=== PATIENT | male | born 1975 | race African-American/Black ===

== ENCOUNTER 2020-02-19 22:13 | Emergency (ER) | payer MEDICAID, SELFPAY ==
[2020-02-19 22:30] VITALS: BP 158/92; PULSE 88; RESP 16; TEMP 36.6; O2SAT 98; BMI 30.7
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
[2020-02-19 22:56] VITALS: RESP 16
[2020-02-19 23:27] LABS: MANUAL DIFF FLAG NO
[2020-02-19 23:28] LABS: Basophils Absolute Auto 0.1 X10*3/uL (0.0-0.2); Basophils Percent Auto 1.1 % (0-2); Eosinophils Absolute Auto 0.2 X10*3/uL (0.0-0.4); Eosinophils Percent Auto 3.5 % (0-4); Hematocrit 40.8 % (42-52); Hemoglobin 13.6 g/dl (14.0-18.0); Imm Gran Abs Auto 0.04 X10*3/uL (0.00-0.03); Imm Gran Pct Auto 0.7 % (0.0-0.4); Lymphocytes Percent Auto 35.3 % (20-40); Mean Corpuscular HGB Conc 33.3 g/dl (31.0-36.0); Mean Corpuscular Hemoglobin 33.4 pg (27.0-33.0); Mean Corpuscular Volume 100.2 fL (80-98); Mean Platelet Volume 9.5 fL (9.4-12.4); Monocytes Absolute Auto 0.6 X10*3/uL (0.1-1.2); Monocytes Percent Auto 10.1 % (2-11); Neutrophils Absolute Auto 2.8 X10*3/uL (2.0-8.3); Neutrophils Percent Auto 49.3 % (45-73); Platelet Count 224 X10*3/uL (160-400); Red Blood Count 4.07 X10*6/uL (4.60-5.80); Red Cell Distribution Width 12.3 % (11.0-16.0); White Blood Count 5.7 X10*3/uL (4.8-10.8)
[2020-02-19 23:51] LABS: Ethanol 97 mg/dL
[2020-02-20] VITALS (8 sets, daily range): BP systolic 125–174; BP diastolic 78–93; PULSE 78–106; RESP 14–20; TEMP 36.6–36.8; O2SAT 94–99
[2020-02-20] MEDS: Acetaminophen 325 MG TABLET 650 MG PO ×2 (00:30→13:01)
[2020-02-20 00:47] LABS: Amphetamine Screen Urine Not Detected (Not Detect); Barbiturates, Urine Not Detected (Not Detect); Benzodiazepines Screen Urine Not Detected (Not Detect); Cannabinoid Screen Urine POSITIVE (Not Detect); Cocaine Screen Urine POSITIVE (Not Detect); Opiate Screen Urine Not Detected (Not Detect); Phencyclidine Screen Urine POSITIVE (Not Detect)
--- NOTE | 2020-02-20 05:26 | PC.NURSE ---
Called and faxed to N
--- NOTE | 2020-02-20 07:25 | PC.NURSE ---
pt eating breakfast. pt calm and cooperative. pt aware we are awaiting BHN
--- NOTE | 2020-02-20 10:00 | PC.NURSE ---
pt requesting this RN get someone to fix the television. pt made aware that the TV doesn't work in his room and we are unable to fix it. Pt verbalized his frustration that he can't watch tv in his room. pt texting on his cell phone
--- NOTE | 2020-02-20 10:16 | PC.NURSE ---
pt ambulated to bathroom w/steady gait
--- NOTE | 2020-02-20 11:51 | PC.NURSE ---
patient a&o, pt c/o rt heel pain and neck pain, pt states he has had the heel pain for a long time but his neck pain he woke up with and is unsure what the cause was. vitals obtained, pt states he doesn't feel safe, sitter at bedside, pt a [facility] bed search, will continue to monitor.
[2020-02-20] MEDS: LORazepam 1 MG TABLET 2 MG PO (11:59)
--- NOTE | 2020-02-20 13:04 | PC.NURSE ---
Pt arrived to unit, continues to report SI, and pain in foot. pt given tylenol for pain, currently in common area, eating lunch, affect even. pt watching television.
--- NOTE | 2020-02-20 15:42 | PC.NURSE ---
Pt resting in room, resp unlabored.
[2020-02-20] MEDS: Ibuprofen 600 MG TABLET PO ×2 (18:07→23:44)
--- NOTE | 2020-02-20 19:47 | XR_ITS ---
Examination: XR foot RT 2V, XR ankle RT 2V Indication: pain Comparison: No pertinent prior studies are currently available for comparison. Technique: 3 views the right foot with 2 additional views of the right ankle. The lateral view of the foot included in the lateral ankle Findings: Bones are normal anatomic alignment. I do not appreciate any acute fracture or dislocation. No significant soft tissue swelling about the ankle. Ankle mortise appears grossly intact. No acute bony abnormality in the foot. Minimal degenerative changes at the first MTP joint. Prominent calcaneal heel spur at the attachment point of the plantar aponeurosis. Impression: Minimal degenerative changes but no acute fracture or dislocation.
--- NOTE | 2020-02-20 20:26 | PC.NURSE ---
1899- PATIENT WALKING POD WITH LIMPING GAIT. HE REPORTS HAVING SEVERE ANKLE PAIN ON RT FOOT. PLAN TO CONTACT PROVIDER FOR XRAY. 1999-PATIENT SENT TO IMAGING AND BACK WITHOUT DIFFICULTY. PATIENT GIVEN FOOD. BEHAVIOR IN CONTROL AT THIS TIME.
--- NOTE | 2020-02-20 22:12 | PC.NURSE ---
2100-PATIENT WATCHING TV IN MILL ROOM. PATIENT AFFECT IS CALM. PATIENT DENIES NEEDS AT THIS TIME. 2200-PATIENT ANIMATEDLY HAVING CONVERSATION WITH OTHER PATIENTS. PATIENTS DENY NEEDS.
--- NOTE | 2020-02-20 22:39 | PC.NURSE ---
Patient reported symptoms of withdrawals. i have shakes, sweating, and chills. patient was not noted to be diaphoretic, shaking at rest or in any discomfort. This service writer advisor went to obtain 2mg ativan po from [facility]. Order obtained. Patient then stated he wanted narcotics for chronic heel spur pain. Patient then refused po ativan for withdrawals. i want not to wake up in pain. Motrin and tylenol don't work . Patient adamantly refused ativan after education. [facility] consulted and made aware of situation. At this time, we will continue to monitor the patient for withdrawal symptoms. Medication returned. basket turner updated on situation.
--- NOTE | 2020-02-21 00:07 | PC.NURSE ---
2200: PATIENT EDUCATED ON PROCESS OF BH POD AND QUIET HOURS. PATIENT REMAINS CALM AT THIS TIME. PATIENT DENIES SYMPTOMS OF WITHDRAWAL. SKIN P/W/D. NO TREMORS NOTED AT REST. AIRWAY PATENT. CALM AND EASILY REDIRECTED AT THIS TIME. 2300: PATIENT ENCOURAGED TO LOWER VOICE. PATIENT REPORTS TAKING 800-1000MG GABAPENTIN ALONG WITH 1000MG MOTRIN 3 X A DAY PRN. WHEN ASKED TO CLARIFY DOSAGES AND MEDICATIONS, PATIENT FREQUENTLY CHANGES NAMES, MEDICATIONS, AND DOSAGES. PT REPORTS THAT HE IS STILL WITHDRAWING HEROIN, ALCOHOL, AND OTHER STUFF . PATIENT UNABLE TO SPECIFY WHAT OTHER MEDS HE IS WITHDRAWING FROM. 0000: PATIENT SPEAKING CLEAR FULL SENTENCES WITHOUT ANY DISTRESS. SKIN P/W/D. NO TREMORS NOTED. PATIENT MEDICATED WITH 600MG MOTRIN FOR BONESPUR PAIN. PT DENIES HEADACHE, CHEST PAIN, SOB, N/V, OR DISCOMFORT. PATIENT IS REQUESTING STRONGER MEDICATION FOR PAIN MANAGEMENT. MLP AWARE OF REQUESTS AND CURRENT PLAN TO MONITOR. WILL CONTINUE TO MONITOR
[2020-02-21 00:24] VITALS: BP 142/90; PULSE 87; RESP 17; TEMP 36.9; O2SAT 100
--- NOTE | 2020-02-21 00:33 | PC.NURSE ---
CONTACT MADE WITH JOJO AT [facility] ON [facility] REGARDING MEDICATIONS. PER [facility] STAFF MEMBER PATIENT HAS ONLY FILLED A PERSCRIPTION FOR 800MG GABAPENTIN IN THE LAST 6 MO. FILLED ON 02/04/20, PATIENT IS SUPPOSED TO TAKE THIS MEDICATION TID.
--- NOTE | 2020-02-21 01:54 | PC.NURSE ---
PATIENT IS NOW OUT OF BED AND SITTING IN TV AREA. PATIENT TO BE REVITALED AT 2AM.
[2020-02-21 01:59] VITALS: BP 172/100; PULSE 86; RESP 18; TEMP 36.6; O2SAT 97
--- NOTE | 2020-02-21 02:01 | PC.NURSE ---
MLP MADE AWARE OF BLOOD PRESSURE. PER MLP NO NEED TO MEDICATE AT THIS TIME. WILL CONTINUE TO MONITOR.
--- NOTE | 2020-02-21 02:17 | PC.NURSE ---
PATIENT EDUCATED ON SIGNS AND SYMPTOMS OF WITHDRAWALS. PATIENT INFORMED THAT COURSE OF CARE IS TO MONITOR AT THIS TIME. PATIENT REPORTS 10/10 PAIN IN RIGHT FOOT/ANKLE UNRELIEVED BY MOTRIN AND TYLENOL. PATIENT ASKED FOR ATIVAN. PATIENT EDUCATED ON PROVIDER'S WISHES TO HOLD OFF ON MEDICATING AND AT THIS TIME PATIENT REQUESTS TO SPEAK TO PROVIDER.
--- NOTE | 2020-02-21 02:26 | PC.NURSE ---
PATIENT REQUESTED THAT THIS RN GET HIM PAPERWORK TO FILE A COMPLAINT AND SPEAK TO THIS RN'S RACEHORSE TRAINER. PATIENT EXPRESSES DISSATISFACTION WITH PLAN OF CARE, SPECIFICALLY NOT BEING GIVEN NARCOTICS OR SOMETHING STRONGER THAN MOTRIN OR TYLENOL . PATIENT REQUESTS HILL TUCKER TO BEDSIDE. HILL UNAVAILABLE. MLP AND CHARGE NURSE AWARE OF COMPLAINT. PATIENT TO BE OFFER 50MG ATARAX FOR SYMPTOMS.
--- NOTE | 2020-02-21 02:35 | PC.NURSE ---
PATIENT REFUSED ATRAX BECAUSE THAT SHIT DOESNT WORK FOR ME. PATIENT ACCUSED THIS RN OF RACISM AND HAVING AN ATTITUDE BECAUSE I WAS OFFERED ATIVAN EARLIER AND DID NOT TAKE IT, I DON'T WANT THIS BULLSHIT. NAVAL GUNFIRE SPOTTER TO BEDSIDE .
--- NOTE | 2020-02-21 02:40 | PC.NURSE ---
PER PATIENT I DONT' FUCKING LIKE YOU, I DONT BELIEVE THAT YOU'RE SORRY. IT'S BULLSHIT ALL I WANTED WAS MY ATIVAN AND MEDICATIONS TO HELP ME. ASSOCIATION EXECUTIVE TO FOLLOW UP WITH MLP REGARDING ATIVAN.
[2020-02-21] MEDS: LORazepam 1 MG TABLET 2 MG PO (02:42)
[2020-02-21] MEDS: Acetaminophen 325 MG TABLET 650 MG PO (02:59)
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
--- NOTE | 2020-02-21 03:47 | PC.NURSE ---
PATIENT IS NOW YP AND AMBULATING TO BATHROOM.
--- NOTE | 2020-02-21 04:24 | PC.NURSE ---
patient sleeping at this time. skin p/w/d. airway patent. patient is able to reposition self on bed without difficulty.
--- NOTE | 2020-02-21 04:32 | PC.NURSE ---
patient is up and ambualting to bathroom with wide steady gait.
--- NOTE | 2020-02-21 04:35 | PC.NURSE ---
patient requests sandwich and educated on meal times. no questions.
--- NOTE | 2020-02-21 06:33 | PC.NURSE ---
During 629 vs, ert found that the patient had an episode of urine incontinence. ERT and MHA reported to this automobile service writer the patient stated I tried to make it, but i couldn't . Patient has been able to ambulate to the bathroom multiple times without difficulty through out the shift and has been preforming ADLS without incident. Patient appears to have intermittent limp when ambulating though Pod. Patient was offered fresh linen and doug and refused. Unsoiled clothing brought to [facility] and left for patient.
[2020-02-21 06:45] VITALS: BP 146/86; PULSE 87; RESP 16; TEMP 36.7; O2SAT 96
--- NOTE | 2020-02-21 07:10 | PC.NURSE ---
Report received. PT is sleeping in bed. Breathing is even and unlabored. Bed search in progress.
[2020-02-21 09:22] VITALS: BP 164/107; PULSE 81; RESP 18; TEMP 36.6; O2SAT 99
--- NOTE | 2020-02-21 09:33 | PC.NURSE ---
PT is sitting in his room eating breakfast, calm and cooperative. When asked about his pain patient stated that the pain is very bad because he severed his Achilles tendon . Does not appear to be limping. No noted gait change.
--- NOTE | 2020-02-21 11:09 | PC.NURSE ---
PT is sleeping in bed. Calm and cooperative. No other complaints.
--- NOTE | 2020-02-21 11:55 | MHC.CARE ---
CARE Team met with patient to discuss substance use and recovery. Patient reports he is interested in cutting back how much he uses. Patient is currently reporting symptoms of withdrawal and frustration that he is not being medicated for it. This check writer explained to patient that the decision to medicate can be based off of objective measures like heart rate and blood pressure and that we are keeping a close eye on those and ensuring that he is safe. Patient acknowledged. Patient reports that he does not have any supports in place to assist him in his recovery. This check writer explained that he will get referred to a therapist before he discharged from psychiatric treatment but that he may benefit from getting connected with a Veneer Sample Maker as well. This check writer explained what recovery coaching is to patient and offered patient the opportunity to meet with one. Patient accepted. This check writer introduced patient to Axel Veneer Sample Maker who discussed recovery supports and [facility] with patient. CARE Team available as needed.
--- NOTE | 2020-02-21 13:19 | PC.NURSE ---
PT is resting in bed. Calm and cooperative. No other complaints.
[2020-02-21] MEDS: LORazepam 1 MG TABLET PO (14:39)
--- NOTE | 2020-02-21 14:56 | PC.NURSE ---
PT is sleeping in his room. Breathing is even and unlabored. No other complaints.
[2020-02-21 15:00] LABS: Alanine Aminotransferase 19 U/L (0-40); Albumin Level 3.9 g/dL (3.5-5.0); Alkaline Phosphatase 79 U/L (39-117); Anion Gap 10 (12-20); Aspartate Amino Transferase 16 U/L (5-37); Bilirubin Direct < 0.2 mg/dL (0.0-0.5); Bilirubin Total 0.3 mg/dL (0.0-1.0); Blood Urea Nitrogen 16 mg/dL (9-16); Calcium 9.2 mg/dL (8.4-10.2); Carbon Dioxide 27 mmol/L (22-29); Chloride 103 mmol/L (96-108); Estimated Glomerular Filt Rate > 60; Glucose Random 106 mg/dL (60-115); Potassium 4.3 mmol/l (3.3-5.1); Sodium 136 mmol/L (135-145); Total Protein 6.7 g/dL (6.5-8.0)
[2020-02-21] MEDS: Haloperidol Lactate 5 MG/ML VIAL IM (15:42)
[2020-02-21] MEDS: LORazepam 2 MG/ML VIAL IM (15:42)
--- NOTE | 2020-02-21 15:45 | PC.NURSE ---
PT is displaying aggressive and agitated verbal behavior. PT stated You guys really want to see what I can do? I'll show you any chance I get. PT requested and was given IM injection of 5 mg haldol and 2 mg ativan. PT threw his meal across the room and all over the mackay prior to nurse walking into room.
--- NOTE | 2020-02-21 17:18 | PC.NURSE ---
PT asleep, respirations even and unlabored, in no apaprent distress.
[2020-02-21 23:41] VITALS: RESP 18
[2020-02-22] VITALS (7 sets, daily range): BP systolic 149–167; BP diastolic 88–101; PULSE 77–101; RESP 16–18; TEMP 36.3–37.1; O2SAT 96–100
--- NOTE | 2020-02-22 00:34 | PC.NURSE ---
When ED rounding was done at midnight, entire wall and floor was soiled with food. Called environment service for a deep cleaning. Will monitor.
[2020-02-22] MEDS: LORazepam 1 MG TABLET 2 MG PO ×2 (03:26→20:44)
[2020-02-22] MEDS: Acetaminophen 325 MG TABLET 650 MG PO (03:26)
[2020-02-22] MEDS: Gabapentin 400 MG CAPSULE 800 MG PO ×4 (03:26→20:42)
--- NOTE | 2020-02-22 06:09 | PC.NURSE ---
Pt woke up at 0320 and asking for pain pills and withdrawal meds. made aware. Per MD, Tylenol 650 mg PO, Ativan 2 mg PO given. Scheduled gabapetin 800 mg given late at 0330 d/t pt sleeping at 2200. Pt ambulated to bathroom x2 with steady gait. Ate sandwich, and drank eusebia-eboni. NAD. Slept well. Awaiting for inpatient bedsearch.
--- NOTE | 2020-02-22 06:59 | PC.NURSE ---
Report received. PT sleeping in bed. Breathing is even and unlabored. PT is inpatient bed search.
--- NOTE | 2020-02-22 09:09 | PC.NURSE ---
PT is sitting in his room eating breakfast. Calm and cooperative. No other complaints.
--- NOTE | 2020-02-22 11:10 | PC.NURSE ---
PT is resting in bed. Calm and cooperative. No other complaints.
--- NOTE | 2020-02-22 13:21 | PC.NURSE ---
PT is walking around the unit. Received a phone call from a friend stating that he was coming to pick him up. PT now asking to be discharged home. Waiting to be reevaluated by THAO.
--- NOTE | 2020-02-22 15:17 | PC.NURSE ---
PT being seen by N. Calm and cooperative. No other complaints.
[2020-02-22] MEDS: Ibuprofen 800 MG TABLET PO (15:49)
--- NOTE | 2020-02-22 17:04 | PC.NURSE ---
PT is sleeping in bed. Breathing is even and unlabored. Plan is to keep overnight and reassess in the morning.
[2020-02-23] MEDS: LORazepam 0.5 MG TABLET 1 MG PO ×2 (03:01→09:06)
[2020-02-23 03:04] VITALS: BP 167/109; PULSE 96; RESP 16; TEMP 36.6; O2SAT 98
--- NOTE | 2020-02-23 07:15 | PC.NURSE ---
RECEIVED REPORT FROM ADELAIDA NARAYANAN. PT ALERT AND VERBAL. SKIN DRY, WARM, COLOR NORMAL FOR ETHNICITY. RESPIRATIONS EVEN AND NON LABORED. SITTING UP IN ROOM, EATING BREAKFAST.
[2020-02-23] MEDS: Gabapentin 400 MG CAPSULE 800 MG PO (09:06)
[2020-02-23 09:08] VITALS: BP 142/97; PULSE 97; RESP 18; TEMP 36.6; O2SAT 100
== END 2020-02-23 12:22 | disposition home or self-care (01) ==
PROVIDERS: Nurse Practitioner Family; Emergency Provider Emergency Medicine
DX: R45.851 Suicidal ideations (principal); F32.9 Major depressive disorder, single episode, unspecified; F10.10 Alcohol abuse, uncomplicated; Y90.4 Blood alcohol level of 80-99 mg/100 ml; I10 Essential (primary) hypertension; F41.9 Anxiety disorder, unspecified; F17.200 Nicotine dependence, unspecified, uncomplicated; F14.90 Cocaine use, unspecified, uncomplicated; Z79.899 Other long term (current) drug therapy
CPT/HCPCS: 36415; 73600; 73620; 80048; 80076; 80307; 80320; 85025; 96372; 99285; J2060

== ENCOUNTER 2020-06-02 20:03 | Emergency (ER) | payer MEDICAID, SELFPAY ==
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
--- NOTE | 2020-06-02 21:04 | PC.NURSE ---
THIS RN SPEAKING WITH THOMN WHEN PATIENT ARRIVED. STATING THAT PATIENT WAS UNDER ARREST AND WITH [employer]. HE HAS BEEN BOOKED FOR HOURS AND PLAN IS FOR HIM TO REMAIN IN POLICE CUSTODY. THOMN TALKING WITH THE INDUSTRIAL PROPERTY APPRAISER WHO WILL NOT DENY AN EVALUATION OF A PATIENT BUT PLACEMENT FOR CRISIS IS NOT POSSIBLE DUE TO THE FACT THAT HE IS ARRESTED WITH POLICE AND NEEDS TO FINISH WITH THEM BEFORE PLACEMENT COULD HAPPEN. THEIR RECOMMENDATION WAS TO HAVE HIM SEEN BY THE INTAKE AND CRISIS TEAM AT [place] WHO WILL BE ABLE TO WATCH AND EVALUATE PATIENT LIKE THEY WOULD. WHILE PATIENT WAS HERE AT THE HOSPITAL, DIRECTLY THREATENING STAFF. STATING HE WOULD DO WHATEVER IT TAKES TO NOT GO TO A CELL, THREATENING HIMSELF AND OTHERS TO PROVE HIS POINT. SECURITY IN POD WITH COMPRESSION MOLDING MACHINE OPERATOR AND STAFF. TALKING COMPRESSION MOLDING MACHINE OPERATOR AND HIS INDUSTRIAL PROPERTY APPRAISER OVER THE PHONE, EXPLAINING WHAT THOMN REPORTED TO THIS NURSE. INDUSTRIAL PROPERTY APPRAISER STRESSING THE DANGER THIS INDIVIDUAL POSED AND THAT HE NEEDED TO STAY AT THE HOSPITAL. PATIENT WAS SEEN AND MEDICALLY CLEARED BY THE PROVIDER AND CLEARED TO RETURN TO POLICE TO CONTINUE TO FOLLOW UP WITH [facility] CRISIS TEAM.
[2020-06-02 21:17] VITALS: BP 183/113; PULSE 83; RESP 16; TEMP 37.2; O2SAT 99; BMI 45.2
--- NOTE | 2020-06-02 21:31 | PC.NURSE ---
[place] police placed this individual under arrest and brought him to the emergency department to be medically cleared before going to [facility]. PT was making SI/HI statements to police prior to arrival. Upon arrival PT was seen by provider and determined to be medically stable. PT became agitated when he found out that N would not see him because he was under arrest. PT making threats to staff saying, I want to hurt people and I'm about to go crazy . Once a police cruiser arrived for transport, the PT refused to comply with officers and would not walk to the cruiser. PT was then picked up by his extremities and carried out of the hospital to the cruiser.
== END 2020-06-02 21:54 ==
PROVIDERS: Emergency Provider Emergency Medicine Emergency Medical Services
DX: F43.0 Acute stress reaction (principal); F31.9 Bipolar disorder, unspecified; R45.850 Homicidal ideations; R45.851 Suicidal ideations; F14.90 Cocaine use, unspecified, uncomplicated; Z79.899 Other long term (current) drug therapy
CPT/HCPCS: 99283

== ENCOUNTER 2021-06-02 04:35 | Emergency (ER) | payer MEDICAID, SELFPAY ==
[2021-06-02 04:51] VITALS: BP 161/105; BP 187/105; PULSE 76; PULSE 95; RESP 16; TEMP 36.4; O2SAT 97; O2SAT 98; BMI 30.8
[2021-06-02 05:25] LABS: Amphetamine Screen Urine Not Detected (Not Detect); Barbiturates, Urine Not Detected (Not Detect); Benzodiazepines Screen Urine Not Detected (Not Detect); Cannabinoid Screen Urine POSITIVE (Not Detect); Cocaine Screen Urine POSITIVE (Not Detect); Fentanyl, urine Not Detected (Not Detect); Opiate Screen Urine Not Detected (Not Detect); Phencyclidine Screen Urine Not Detected (Not Detect)
--- NOTE | 2021-06-02 05:31 | ED.PSYCH ---
HPI - Psych General Chief Complaint: Psychiatric Symptoms Stated Complaint: si w/ plan Time Seen by Provider: 06/02/21 05:19 Source: patient Mode of arrival: EMS History of Present Illness HPI Narrative: 46-year-old male with history of depression and HI who presents via EMS after he states that he has begun to hear voices in his head more clearly, they are not 1 specific voice and are not command in nature. He states that his girlfriend left the other night and ?things were good? but the police then came to the house to escort him from the premises stating that there had been a restraining order this afternoon. He states he does not understand what could be going on and then began feeling overwhelmed and took a razor and was going to cut his wrists with then decided to call regular senior care provider. Patient states he does not want to live any longer in endorses that he did consume alcohol, cocaine and marijuana yesterday. Related Data Home Medications Medication Instructions Recorded Confirmed gabapentin 800 mg tablet 800 mg PO TID 02/21/20 02/21/20 Allergies Allergy/AdvReac Type Severity Reaction Status Date / Time No Known Allergies Allergy Unknown Verified 02/22/20 02:54 Review of Systems Review of Systems: Pertinent positives and negatives as stated in HPI 10 point review of systems is otherwise negative. PMFSH Past Medical History Source: nursing notes reviewed Medical History Anxiety Bipolar 1 disorder, depressed Depression HTN (hypertension) Social History Social History Alcohol intake: current Alcohol intake frequency: 3 or more drinks per day Substance Use Type: Crack/Cocaine Advance Directives: No Advance Directives Information Provided: No Physical Exam Vital Signs: Vital Signs: Last Vital Signs Temp 97.6 F 06/02/21 04:51 Pulse 76 06/02/21 04:51 Resp 16 06/02/21 04:51 BP 187/105 H 06/02/21 04:51 Pulse Ox 97 06/02/21 04:51 BMI result Body Mass Index 30.8 VITAL SIGNS: Reviewed. GENERAL: Well developed, well nourished, in no acute distress. HEAD: Normocephalic/atraumatic, EYES: PERRLA, EOMI EARS: Ext canals without abnormality NOSE: Nares patent bilateral OROPHARYNX: no oral lesions noted, posterior pharynx clear LUNGS: Normal breath sounds. No adventitious sounds or accessory muscle use. SpO2<97> CARDIOVASCULAR: Regular rate and rhythm without noted murmurs ABDOMEN: Soft, non-tender, non-distended with bowel sounds. NEUROLOGIC: Alert and oriented x 4. Strength and sensation to light touch were grossly intact x 4, cranial nerves 2-12 are grossly intact. PSYCH: Depressed affect Course Course Course Narrative: 46-year-old male with history and clinical presentation consistent with depression and suicidal ideation with reported AVH. Patient is noted be COVID-19 positive, is otherwise medically cleared for evaluation by Behavioral Health. Reevaluation(s) Reevaluation #1: Patient placed in physician observation because the patient needed more time for evaluation by Behavioral Health. At the time observation was started the patient's vital signs were stable, patient is alert and oriented, neuro: Nonfocal, CV RRR, lungs clear Time: 06:02 [facility] - Psych Lab Data Labs: Lab Results 06/02/21 06/02/21 Range/Units 05:02 06:15 Urine Opiates Screen Not Detected (Not Detect) Urine Fentanyl Screen Not Detected (Not Detect) Ur Barbiturates Screen Not Detected (Not Detect) Ur Phencyclidine Scrn Not Detected (Not Detect) Ur Amphetamines Screen Not Detected (Not Detect) U Benzodiazepines Scrn Not Detected (Not Detect) Urine Cocaine Screen POSITIVE H (Not Detect) U Marijuana (THC) Screen POSITIVE H (Not Detect) COVID-19 (ERYN) Positive A (Negative) COVID-19 Clin Com See Note Discharge Plan Discharge Clinical Impression: Suicidal ideation, Depression Patient Disposition: Still a Patient Prescriptions: No Action gabapentin 800 mg Tablet 800 mg PO TID RF: 0
--- NOTE | 2021-06-02 05:46 | PC.NURSE ---
PT stated that he is having constant thoughts of self harm. PT stated that while looking at the emergency pull cord in the bathroom, he was having thoughts of wrapping the cord around his neck and strangling himself. PT stated that he is having a lot of anxiety at this time. Provider made aware.
[2021-06-02] MEDS: hydrOXYzine HCL 50 MG TABLET PO (06:18)
--- NOTE | 2021-06-02 06:24 | PC.NURSE ---
pt exchange underwriting consultant into hospital attire. belonging in the Pod 3 bags on the floor. pt is calm and cooperative and resting in bed.
[2021-06-02 06:30] LABS: COVID-19 Test Positive (Negative); IDNOW Serial# 9DD0AD1C
[2021-06-02 07:04] VITALS: BP 144/74; PULSE 94; RESP 14; TEMP 36.9; O2SAT 98
--- NOTE | 2021-06-02 07:16 | PC.NURSE ---
[facility] crisis referral complete.
[2021-06-02 07:28] VITALS: BP 135/82; PULSE 84; RESP 18; TEMP 36.9; O2SAT 98
[2021-06-02 10:58] VITALS: BP 141/61; PULSE 76; RESP 18; O2SAT 97
--- NOTE | 2021-06-02 12:40 | PC.NURSE ---
SLEEPING MOST OF THE DAY. NO COVID LIKE SXS. ATE BREAKFAST TAKING PO FLUIDS. IP BED SEARCH IN PROGRESS
[2021-06-02 14:24] VITALS: BP 152/76; PULSE 82; RESP 14; TEMP 37.3; O2SAT 99
--- NOTE | 2021-06-02 16:59 | PC.NURSE ---
CONTINUES COOPERATIVE.EATING APPROP. NO ASSESSMENT CHANGES
--- NOTE | 2021-06-02 20:34 | PC.NURSE ---
Pt ambulating to the bathroom, provided with food/drink per request.
[2021-06-02 22:21] VITALS: BP 172/73; PULSE 90; RESP 18; TEMP 36.8; O2SAT 98
--- NOTE | 2021-06-02 22:24 | PC.NURSE ---
Pt stating he's been having severe SI thoughts all day and would like to take something to help him sleep Pt remains calm and cooperative Afebrile Dr. Lopez made aware
[2021-06-02] MEDS: Melatonin 3 MG TABLET 6 MG PO (22:47)
--- NOTE | 2021-06-02 23:24 | PC.NURSE ---
Pt medicated per JUL Pt eating dinner NAD Will continue to monitor
--- NOTE | 2021-06-02 23:41 | PC.NURSE ---
Pt resting with eyes closed breathing even and unlabored NAD Will continue to monitor
[2021-06-03 02:34] VITALS: BP 137/77; PULSE 70; RESP 18; TEMP 36.8; O2SAT 98
--- NOTE | 2021-06-03 02:35 | PC.NURSE ---
Pt resting with eyes closed Breathing even and unlabored NAD Awaiting IP bed placement Will continue to monitor
--- NOTE | 2021-06-03 08:40 | PC.NURSE ---
sleeping resp even and unlabored, nad
[2021-06-03 12:05] VITALS: RESP 20
--- NOTE | 2021-06-03 13:39 | PC.NURSE ---
Pt remains in behavioral control and is able to contract for safety. vss.
--- NOTE | 2021-06-04 | ECG_ITS ---
Test Reason : medical clearance Blood Pressure : / mmHG Vent. Rate : 061 BPM Atrial Rate : 061 BPM P-R Int : 192 ms QRS Dur : 102 ms QT Int : 380 ms P-R-T Axes : 082 064 056 degrees QTc Int : 382 ms Normal sinus rhythm Normal ECG When compared with ECG of 21-AUG-2006 11:22, No significant change was found Referred By: Abril Mckeon Electronically Signed By:AURORA MEDINA MD
--- NOTE | 2021-06-04 05:29 | PC.NURSE ---
Patient slept through the night, no distress observed/reported, behavior hyper with multiple needs, Currently not on any medication, patient's disposition per [facility] is section 12 inpatient bed search, patient is COVID +, will continue to monitor.
--- NOTE | 2021-06-04 07:08 | PC.NURSE ---
patient appears to remain asleep at present respirations are even and unlabored, patient appears in no distress
[2021-06-04 07:49] VITALS: BP 147/90; PULSE 71; RESP 14; TEMP 37.1; O2SAT 100
--- NOTE | 2021-06-04 12:20 | P.CNPS_ITS ---
History of Present Illness Date of Service: 06/04/2021 Chief Complaint: si w/ plan Reason for Consult: disposition Requesting physician: Kanika Rg Discussed with referring provider: Yes Sources of Information: patient interviewed, chart reviewed and crisis/core team assessment reviewed HPI Narrative: Bright is a 46 y.o. Male who presented to [facility] 06/02/21 via ambulance after he showed up at his gf?s residence and police presented him with a restraining order and escorted him off the premises. Pt reported AH and SI and told crisis clinicians he held a razor blade to his wrists and then decided to call police. and was going to cut his wrists with then decided to call distribution center supervisor. His utox was positive for cocaine, cannabis, and BAL was 97 on arrival. Stated he had been sober a year prior to this relapse. Pt was also found to be COVID-19 positive.?? I evaluated the pt this morning and upon interview he reports he is at the hospital because ?me and my girlfriend are going through some issues.? Says he had not seen her for a day or two and that ?two distribution center supervisor abruptly showed up at my door and I didnt get what?s going on, I lost it? and ?I just didnt get it.? States he has been with his gf over a year and that since arriving at [facility], his gf and he have talked on the phone and ?everything is okay.? He says the restraining order was an emergency order and is no longer valid. Pt currently denies sx of depression, AH, or SI and says ?Im happy now, i?m a different mood.? He is not currently taking any psych medications and says this is due to his past provider, Dr. Carpio, retiring and transportation issues. Upon chart review, he was last on gabapentin and says this helped with neuropathy.? I spoke with pt?s gf, Jessica, at [phone]. She reports she and Bright are ?doing a lot better.? Says she has no concerns with him and ?things are much better between us.? She denies having concerns with feeling safe with him. She denies that he has been self harming. Says she misses him and that they have been together a little over a year and would accept him back home. Past Psychiatric History: Per [facility] crisis eval, pt has a hx of assaultive behaviors. He served 10 yrs in [facility] and was released in May 2018. He has served multiple sentences totaling 23 yrs. He has been charged with fire setting, vandalism, kidnapping, drug trafficking, armed robbery, and assault and battery, with his first incarceration being at the age 17. He has a hx of presenting to crisis for depression, SI, and substance abuse. He last presented to [facility] on 06/02/20 under police custody for domestic violence, verbally threatening to harm himself, hospital staff, and police officers if he was removed from the hospital and brought to care home. He has a hx of IPLOC, CCS, EATS/ Detox, and Section 35 in 02/2019. He has a hx of treatment and medication non- adherence, as well as signing out of several facilities AMA. He has a history of receiving mental health services and medications while incarcerated at [facility]. Pt has no current outpatient providers. Medical Evaluation Reviewed: Yes [facility] Medical History Anxiety Bipolar 1 disorder, depressed Depression HTN (hypertension) Social History: -Lives with gf x one year. Supports include his mother, who lives in [place]. Diagnostics Vital Signs (24Hr): Vital Signs - 24 hr 06/04/21 07:49 Temperature 98.7 F Pulse Rate 71 Respiratory Rate 14 Blood Pressure 147/90 H Pulse Oximetry 100 BMI result Wool Shearing Supervisor New 4Bd Body Mass Index Wool Shearing Supervisor New 4d 30.8 Wool Shearing Supervisor New 4d Wool Shearing Supervisor New 4d Mental Status Exam Mental Status Exam Narrative: A&O. Okay grooming, not malodorous, normal body habitus. Good eye contact, mostly attentive. No Tics or Tremors. No abnormal involuntary movements. Pt is overall calm, cooperative, engaged. Non-pressured speech, spontaneous with regular rate and rhythm, normal volume and prosody. No prolonged speech latency or dysarthria. Mood is ?better,? affect is constricted. Denies SI/SIB/HI upon inquiry. Denies A/VH or delusional thought content. Thoughts are goal oriented. No known cognitive or memory impairment. Insight/ Judgment limited but adequate. Medications Allergies Allergies Allergy/AdvReac Type Severity Reaction Status Date / Time No Known Allergies Allergy Unknown Verified 02/22/20 02:54 Assessment & Plan Assessment & Plan (1) Cocaine use disorder: Status: Acute Code(s): F14.10 - Cocaine abuse, uncomplicated (2) MDD (major depressive disorder), recurrent severe, without psychosis: Status: Acute Code(s): F33.2 - Major depressive disorder, recurrent severe without psychotic features (3) Post traumatic stress disorder (PTSD): Status: Acute Code(s): F43.10 - Post-traumatic stress disorder, unspecified Plan Pt is a 46 y.o. male who has extensive history of incarceration, assaultive behaviors, and substance use, likely has antisocial traits. Pt does not have good insight into his sx and has hx of risk taking behavior, non-adherence with treatment, and impulsivity. He reports having been sober from substances and alcohol for a year and relapsed in context of verbal altercation with his gf. He is now advocating to leave the hospital, as he and his gf have since resolved their issues. He denies SI/SIB/HI and there are no imminent safety concerns at this time. I spoke with pt's gf and she denies feeling unsafe with him and would like him to come back home. Pt's request for discharge back home will be honored. I have shared this with Kanika Rg and Care Team. Thank you for this consultation. If you have any questions or concerns, please do not hesitate to contact psychiatry service. I spent minutes with the patient and/or on the patient floor today, greater than?50% of which was spent counseling/coordinating care.
== END 2021-06-04 13:09 | disposition home or self-care (01) ==
PROVIDERS: Emergency Provider Student in an Organized Health Care Education/Training Program
DX: F33.1 Major depressive disorder, recurrent, moderate (principal); R45.851 Suicidal ideations; F14.90 Cocaine use, unspecified, uncomplicated; Z20.822 Contact with and (suspected) exposure to COVID-19; Z79.899 Other long term (current) drug therapy
CPT/HCPCS: 80307; 87635; 93005; 99285